=== PATIENT | female | born 1960 | race Caucasian/White ===

== ENCOUNTER 2021-04-15 11:53 | Emergency (ER) | payer BC, SELFPAY ==
[2021-04-15 12:03] VITALS: BP 142/84; PULSE 70; RESP 18; TEMP 36.5; O2SAT 100
--- NOTE | 2021-04-15 12:07 | ED.GENADULT ---
HPI - General Adult General Stated complaint: cough/congestion Source: patient Mode of arrival: ambulatory Limitations: no limitations History of Present Illness HPI narrative: Patient is a 61-year-old female who presents to the [facility] via POV for evaluation of cold symptoms that have been present for approximately 3 weeks. Additionally, she reports mild, nonproductive wet cough, sinus pain, pressure, and frontal headaches. She states symptoms worsened over the past 2 days prompting today's visit. Mucinex provides some relief. Nothing worsens symptoms. Denies known exposure to sick contacts. Patient states she tested negative for Covid on April 04, 2021. She is a current tobacco smoker. She also states she has been vaccinated against Covid and is scheduled for her booster May 14, 2021 Related Data Home Medications Medication Instructions Recorded Confirmed levothyroxine 2 03/30/19 Allergies Allergy/AdvReac Type Severity Reaction Status Date / Time varenicline Allergy Unknown Unknown Verified 04/15/21 12:12 Review of Systems Review of Systems: Pertinent negatives: fever, sweats, chills, change in appetite, fatigue, skin color changes, severe persistent headaches, nasal congestion/discharge, dizziness, lymphadenopathy, ear pain/drainage, chest pain, heart murmurs, heart palpitations, shortness of breath, wheezing, cyanosis, hemoptysis, hoarseness, orthopnea, pleuritic pain, nausea, vomiting, diarrhea, and myalgias. PMFSH Past Medical History Medical History (Updated 04/15/21 @ 12:13 by RADHA Landry, ) Hypothyroidism Family History Family History Father Family history of coronary artery disease Social History Social History Alcohol intake: current Comments I have reviewed and agree with the patient's past medical, surgical, social, and family hx as documented by the RN. There is no relevant family history pertinent to the presenting complaint. Exam Narrative: GENERAL: Well-appearing, well-nourished, and in no acute distress. HEAD: Normocephalic, atraumatic. No facial swelling appreciated. Moderate frontal and maxillary sinus tenderness appreciated upon palpation. EYES: PERRLA and EOMI. No evidence of erythema, swelling, or drainage. ENT: Bilateral external ears and ear canals normal. Bilateral TMs are normal.No TM perforation. Nares clear, no epistaxis. Minor amount of clear nasal drainage noted to bilateral naris. Bilateral turbinates are moderately edematous otherwise normal. Mucous membranes moist and pink. Uvula is midline without erythema and swelling. No evidence of petechial rash, cobblestoning, lesions, ulcers, erythema, swelling, exudates, peritonsillar abscess, tenting, or drooling. Breath odor and voice normal. NECK: Supple. No Lymphadenopathy or nuchal rigidity appreciated. CHEST: Bilateral lung manzo are clear to auscultation. No respiratory distress. No evidence of cough or pleuritic cp upon examination. HEART: Regular rate and rhythm. No murmur, gallop, or rub heard. EXTREMITIES: Normal range of motion. No edema. SKIN: Warm, dry, no rash. NEURO: No focal deficits. Alert and oriented x3. Course Vital Signs Vital signs: Vital Signs Temperature 97.7 F 04/15/21 12:03 Pulse Rate 70 04/15/21 12:03 Respiratory Rate 18 04/15/21 12:03 Blood Pressure 142/84 H 04/15/21 12:03 Pulse Oximetry 100 04/15/21 12:03 Temperature 97.7 F 04/15/21 12:03 Pulse Rate 70 04/15/21 12:03 Respiratory Rate 18 04/15/21 12:03 Blood Pressure 142/84 H 04/15/21 12:03 Pulse Oximetry 100 04/15/21 12:03 Medical Decision Making Differential Diagnosis Differential Diagnosis: Allergic rhinitis, ABRS, acute viral sinusitis, strep pharyngitis, nasopharyngitis, bronchitis, pneumonia, AOM, otitis externa, viral URI, influenza, covid
== END 2021-04-15 12:20 | disposition home or self-care (01) ==
PROVIDERS: Emergency Provider Nurse Practitioner Family; PCP Family Medicine
DX: J01.90 Acute sinusitis, unspecified (principal); E03.9 Hypothyroidism, unspecified
CPT/HCPCS: 99213; G0463

== ENCOUNTER 2023-04-29 08:04 | Emergency (ER) | payer BC, SELFPAY ==
--- NOTE | 2023-04-29 08:14 | ED.URI ---
HPI - URI/Sore Throat General Chief Complaint: Upper Respiratory Infection Stated Complaint: sore throat,sinus drainage,right ear pain Time Seen by Provider: 04/29/23 08:18 History of Present Illness HPI Narrative: 63-year-old female presented for complaint of right-sided sore throat pain, onset yesterday. Reports painful swallow and change in voice. Pain radiates from right side of throat to right ear, and feels a sharp pain in ear at times. She has been able to tolerate foods and liquids. She also reports mild cough, runny nose, and chills. She is not taking anything for symptoms. She smokes half pack per day. Endorses sick contacts with [employer]. Related Data Home Medications Medication Instructions Recorded Confirmed levothyroxine 175 mcg tablet 175 mcg PO DAILY 04/29/23 04/29/23 Allergies Allergy/AdvReac Type Severity Reaction Status Date / Time varenicline Allergy Unknown Unknown Verified 04/29/23 08:11 Review of Systems Review of Systems: CONSTITUTIONAL: Reports chills. EYES: Denies visual changes, redness, or discharge. ENT: reports rhinorrhea, congestion, sore throat, otalgia. CARDIOVASCULAR: Denies chest pain, palpitations, or edema. RESPIRATORY: Denies dyspnea. GASTROINTESTINAL: Denies abdominal pain, nausea, vomiting, or diarrhea. SKIN: Denies rash, itching, or wounds. MUSCULOSKELETAL: Denies back pain, joint pain, or myalgia. NEUROLOGIC: Denies headache [facility] Past Medical History Medical History Hypothyroidism Family History Family History Father Family history of coronary artery disease Social History Social History (Updated 04/29/23 @ 08:28 by Celeste Morrison APRN) Smoking packs per day: 0.5 Smoking cigarettes per day: 10.0 Smoking status: Current every day smoker Alcohol intake: current Exam Narrative: GENERAL: mildly ill-appearing, no acute distress. EYES: conjunctivae clear ENT: Mucous membranes moist. TMs pearly gresham with normal light reflex bilaterally; no tragal tenderness. Oropharynx erythematous Tonsils enlarged Right 3+ with soft palate erythema and swelling, left 2+ with exudate. Hoarse voice with slight muffling/guarding. No drooling, no trismus, uvula midline. No tripod positioning. NECK: Supple. No lymphadenopathy CHEST: Clear to auscultation, breath sounds equal. No respiratory distress, speaks in full sentences. HEART: Regular rate and rhythm. No murmur heard. SKIN: Warm, dry, no rash. NEURO: Alert and oriented x3. Course Course Emergency Course: Patient is aware of diagnosis, understands and agrees to treatment plan. Anticipatory guidance given. Patient agrees to follow-up as directed and is aware of reasons to seek care at the emergency department. Portions of this record may have been created with voice recognition software Level of Care: Express Care Visit Vital Signs Vital signs: Vital Signs Temperature 97.3 F L 04/29/23 08:16 Pulse Rate 76 04/29/23 08:16 Respiratory Rate 16 04/29/23 08:16 Blood Pressure 148/91 H 04/29/23 08:16 Pulse Oximetry 95 04/29/23 08:16 Oxygen Delivery Room Air 04/29/23 08:16 Temperature 97.3 F L 04/29/23 08:16 Pulse Rate 76 04/29/23 08:16 Respiratory Rate 16 04/29/23 08:16 Blood Pressure 148/91 H 04/29/23 08:16 Pulse Oximetry 95 04/29/23 08:16 Oxygen Delivery Room Air 04/29/23 08:16 MDM - URI/Sore Throat MDM Narrative Medical decision making narrative: Negative flu covid and strep result reviewed with pt. Discussed concern for peritonsillar abscess. Advised ER transfer, and discussed possible etiologies and complications at length. Pt declines ER at this time. She is aware of the risks of airway blockage, worsening of infection, and . Will give IM rocephin 1g and IM decadron 10mg prior to dc. Rx clinda and medrol pack. She is aware to go to th
[2023-04-29 08:16] VITALS: BP 148/91; PULSE 76; RESP 16; TEMP 36.3; O2SAT 95
[2023-04-29] MEDS: cefTRIAXone 1 GM, LIDOCAINE HCL 1% LOCAL INJ 2.1 ML IM (09:24)
== END 2023-04-29 09:43 | disposition left against medical advice (07) ==
PROVIDERS: Emergency Provider Nurse Practitioner Family; PCP Family Medicine
DX: J35.1 Hypertrophy of tonsils (principal); F17.210 Nicotine dependence, cigarettes, uncomplicated; E03.9 Hypothyroidism, unspecified
CPT/HCPCS: 87081; 87426; 87804; 87880; 96372; 99214; C9803; G0463; J1100

== ENCOUNTER 2024-10-05 14:09 | Emergency (ER) | payer OTHER, SELFPAY ==
[2024-10-05 14:14] VITALS: BP 134/95; PULSE 105; RESP 20; TEMP 36.6; O2SAT 98
--- NOTE | 2024-10-05 14:18 | ED_ITS ---
HPI - Neck Pain/Injury General Chief Complaint: Dental/Oral Stated Complaint: went to poss tonsil abs Time Seen by Provider: 10/05/24 14:10 History of Present Illness HPI Narrative: 64-year-old female presenting to the emergency department for evaluation of right-sided sore throat. She states she went to urgent care earlier today and was told that she might have a tonsillitis or an abscess and was referred to the emergency department for evaluation. She had a strep swab and viral panel swab done over there that was negative according to her. She endorses symptoms started this morning with subjective fever and sore throat. Denies any difficulty swallowing, no phonation changes, no intolerance to oral secretions or food/water. No coughing, sneezing, runny nose or difficulty breathing. Had something similar happen on the right side tonsillar about 1 year prior and was treated with antibiotics and did not require any kind of drainage, surgical interventions or ENT referral. Patient has never had her tonsils or adenoids removed. Remote history of thyroidectomy but nothing recent. Related Data Home Medications ?Medication ?Instructions ?Recorded ?Confirmed ?Last Taken ?Type levothyroxine 175 mcg tablet 175 mcg PO DAILY 04/29/23 04/29/23 Unknown History Allergies Allergy/AdvReac Type Severity Reaction Status Date / Time varenicline Allergy Unknown Unknown Verified 04/29/23 08:11 Review of Systems 2 Review of Systems: As reviewed above in HPI [facility] Past Medical History Medical History Hypothyroidism Family History Family History Father Family history of coronary artery disease Social History Social History Smoking packs per day: 0.5 Smoking cigarettes per day: 10.0 Smoking status: Current every day smoker Alcohol intake: current Exam 2 Narrative: GENERAL: [Well-appearing, well-nourished, and in no acute distress.] HEAD: [Normocephalic, atraumatic.] EYES: [PERRLA and EOMI.] ENT: Posterior oropharynx with some mild erythema over the right tonsillar pillar but no purulent drainage, tonsillar stones or exudates identified. No posterior pharyngeal erythema, uvula is midline, tonsillar pillars are widely space without any swelling, no appreciable abscess formation or drainable pocket of fluctuance on palpation. Mild pain but no phonation changes, no pooling of secretions, no lymphadenopathy in the head or neck. Moist mucous membranes. NECK: Supple. CHEST: [Clear to auscultation. No respiratory distress.] HEART: [Regular rate and rhythm]. No murmur heard. [Normal peripheral pulses.] ABDOMEN: [Soft, nondistended], [nontender], [No rigidity or guarding] EXTREMITIES: Normal range of motion. [No edema.] SKIN: Warm, dry, no rash. NEURO: [No focal deficits]. Alert and oriented [x3.] PSYCH: [Normal mood and affect.] Course Vital Signs Vital signs: Vital Signs Temperature 36.6 C 10/05/24 14:14 Pulse Rate 105 H 10/05/24 14:14 Respiratory Rate 20 10/05/24 14:14 Blood Pressure 134/95 H 10/05/24 14:14 Pulse Oximetry 98 10/05/24 14:14 Oxygen Delivery Room Air 10/05/24 14:14 Temperature 36.6 C 10/05/24 14:14 Pulse Rate 74 10/05/24 15:35 Respiratory Rate 20 10/05/24 15:35 Blood Pressure 155/90 H 10/05/24 15:35 Pulse Oximetry 96 10/05/24 15:35 Oxygen Delivery Room Air 10/05/24 14:14 MDM - Neck Pain/Injury MDM Narrative Medical decision making narrative: 64-year-old female presenting with right-sided sore throat symptoms with concern for potential tonsillitis versus tonsillar abscess. Patient has had remote history of tonsillitis requiring antibiotics and steroids without any surgical interventions or ENT follow-up. She is otherwise well-appearing and has subjective fever but otherwise afebrile here with reassuring vital signs with any significant tachycardia, tachypnea, hypoxia blood pressure concerns. Her examination reveals a posterior oropharynx with some mild erythema over the right tonsillar pillar but no purulent drainage, tonsillar stones or exudates identified. No posterior pharyngeal erythema, uvula is midline, tonsillar pillars are widely space without any swelling, no appreciable abscess formation or drainable pocket of fluctuance on palpation. Mild pain but no phonation changes, no pooling of secretions, no lymphadenopathy in the head or neck. Moist mucous membranes. Differential diagnosis includes pharyngitis, strep throat, tonsillitis, tonsillar stone, peritonsillar abscess, low suspicion for actual abscess formation or retropharyngeal abscess based on examination findings. Will treat her with a dose of Decadron Unasyn and laboratory studies were obtained. No present indications for advanced imaging at this time given clinical findings and overall well appearance. Patient will be able to be discharged home on oral antibiotics with ENT follow-up instructions and return precautions which she verbalized understanding. Patient's laboratory studies show slight leukocytosis of 12 but also component of hemoconcentration given her hemoglobin is elevated 15.1. Normal platelet count. Electrolytes are unremarkable. Normal creatinine, glucose mildly elevated. Patient is safe for discharge home with oral Augmentin and ENT follow-up as well as return precautions for tonsillitis. Patient comfortable with the plan and safe for discharge. Medical Records Attestation: I reviewed the patient's medical records. Lab Data Attestation: I reviewed the patient's lab results. 10/05/24 14:28 10/05/24 14:28 Labs: Lab Results 10/05/24 Range/Units 14:28 WBC 12.0 H (4.5-10.0) K/mm3 RBC 4.95 (4.2-5.4) M/mm3 Hgb 15.1 H (12.0-15.0) g/dL Hct 46.0 (37.0-47.0) % MCV 92.9 (80-100) fl MCH 30.5 (26-34) pg MCHC 32.8 (32-36) g/dl RDW 14.1 (11.5-14.5) % Plt Count 263 (150-375) k/mm3 MPV 11.4 H (7.4-10.4) fl Immature Gran % (Auto) 0.3 (0-0.5) % Neut % (Auto) 63.2 (45.5-73.1) % Lymph % (Auto) 26.3 (18.3-44.2) % Day % (Auto) 7.3 (2.6-8.5) % Eos % (Auto) 2.2 (0-4.4) % Baso % (Auto) 0.7 (0.2-1.2) % Lymph # (Auto) 3.16 (0.9-3.2) K/mm3 Day # (Auto) 0.9 H (0.1-0.6) K/mm3 Eos # (Auto) 0.3 (0-0.3) K/mm3 Baso # (Auto) 0.1 (0.0-0.1) K/mm3 Abs Immat Gran (auto) 0.04 H (0.00-0.031) K/mm3 Absolute Neuts (auto) 7.6 H (1.3-6.7) K/mm3 Absolute Nucleated RBC 0.000 (0.0-0.012) K/mm3 Nucleated RBC % 0.0 (0.0-0.2) % Sodium 137 (137-145) mmol/L Potassium 3.7 (3.4-5.0) mmol/L Chloride 99 (98-107) mmol/L Carbon Dioxide 28 (22-30) mmol/L Anion Gap 10 (4-12) mmol/L BUN 9 (7-17) mg/dL Creatinine 0.69 L (0.7-1.0) mg/dL Estim Creat Clear Calc 79 ml/min Estimated GFR > 60 (59 - ) Glucose 159 H (65-110) mg/dL Calcium 9.1 (8.4-10.2) mg/dL Discharge Plan Discharge Clinical Impression: Acute tonsillitis Patient Disposition: Home Condition: Stable Instructions: Antibiotic Form, Tonsillitis (ED) Additional Instructions: You have very mild inflammation in the right-sided tonsillar pillar, no signs of abscess, nothing drainable at this time. We will send you home with 10 days of Augmentin and he received a high dose steroid here which will help with the pain and swelling. Follow-up with an earth science faculty member, return with any worsening, new or persisting concerns. Patient Language: Setswana Prescriptions: New amoxicillin-pot clavulanate 875-125 mg tablet 1 tablet PO Q12H 10 Days Qty: 20 0RF No Action levothyroxine 175 mcg tablet 175 mcg PO DAILY clindamycin HCl [Cleocin HCl] 300 mg capsule 300 mg PO Q6H 10 Days Qty: 40 0RF methylprednisolone [Medrol (Jose Miguel)] 4 mg tablets,dose pack See Rx Instructions .ROUTE .COMPLEX Qty: 21 0RF Rx Instructions: orally per package directions Follow-up/Referrals: Abla Watters MD [Physician] - 1 Week (Tonsillitis, recurrent) Tian Linares MD [Primary Care Provider] - Lucas Green MD [Physician] - 1 Week (Tonsillitis recurrent) Stand Alone Forms: Work/School Release IP Time of Disposition: 15:23
[2024-10-05 14:35] LABS: Basophils Absolute Auto 0.1 K/mm3 (0.0-0.1); Basophils Percent Auto 0.7 % (0.2-1.2); Eosinophils Absolute Auto 0.3 K/mm3 (0-0.3); Eosinophils Percent Auto 2.2 % (0-4.4); Hemoglobin 15.1 g/dL (12.0-15.0); Immature Granulocyte Absolute 0.04 K/mm3 (0.00-0.031); Immature Granulocyte Percent A 0.3 % (0-0.5); Lymphocytes Absolute Auto 3.16 K/mm3 (0.9-3.2); Lymphocytes Percent Auto 26.3 % (18.3-44.2); Mean Corpuscular HGB Conc 32.8 g/dl (32-36); Mean Corpuscular Hemoglobin 30.5 pg (26-34); Mean Corpuscular Volume 92.9 fl (80-100); Mean Platelet Volume 11.4 fl (7.4-10.4); Monocytes Absolute Auto 0.9 K/mm3 (0.1-0.6); Monocytes Percent Auto 7.3 % (2.6-8.5); Neutrophils Absolute Auto 7.6 K/mm3 (1.3-6.7); Neutrophils Percent Auto 63.2 % (45.5-73.1); Platelet Count Result 263 k/mm3 (150-375); Red Blood Count 4.95 M/mm3 (4.2-5.4); Red Cell Distribution Width 14.1 % (11.5-14.5)
[2024-10-05] MEDS: dexAMETHasone SOD PHOS INJ 10 MG/ML 1 ML VIAL IV PUSH (14:35)
[2024-10-05] MEDS: AMPICILLIN SULB 3 GM/NS 100 ML 3 GM/100 ML VIAL IVPB (14:36)
[2024-10-05 14:44] LABS: Anion Gap 10 mmol/L (4-12); Blood Urea Nitrogen 9 mg/dL (7-17); Calcium 9.1 mg/dL (8.4-10.2); Carbon Dioxide 28 mmol/L (22-30); Chloride 99 mmol/L (98-107); Estimated CRCL calculation 79 ml/min; Estimated Glomerular Filt Rate > 60; Glucose 159 mg/dL (65-110); Potassium 3.7 mmol/L (3.4-5.0); Sodium 137 mmol/L (137-145)
--- OUTSIDE RECORDS SUMMARY | 2024-10-05 14:44 | XMS_ITS | Encounter Summary ---
Author Organization [facility] Address [address] [place] [address] Care Team Providers Care Delivery Sales Worker Name Role Phone Tian Linares MD Primary Care Provider [phone] Encounter Details Date Type Department Care Team (Late st Contact Info) Description 10/19/2012 Chart Note [facility] [address] [address] [place] [address] Cassidy Green Social History Tobacco Use Types Packs/Day Years Used Date Smoking Tobacco: Every Day Cigarettes Alcohol Use Standard Drinks/Week Comments Yes 0 (1 standard drink = 0.6 oz pur e alcohol) Comments No Sex and Gender Information Value Date Recorded Sex Assigned at Not on file 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 Physical Therapy Daily Documentation Patient: Mariana Elena Date: 10/19/2012 Date of : 1960 Physician: No ref. provider found Diagnosis: cervcialgia Pt seen for her PT eval on 08/01/12 and last treatment was 08/12/12. Pt was seen for a total of 4 sessions. No further orders recieved or appointments made as of this date so pt to be D/C'd from Skilled[facility] services as of this date. ANAHY Osman/L [facility] [address] [place] [address] [phone] (fax) documented in this encounter Plan of Treatment Upcoming Encounters Date Type Department Care Team (Late st Contact Info) Description 12/14/2024 11:30 AM CDT Office Visit [facility] [address] [place] [address] Anne Harvey MD [address] [place] [address] documented as of this encounter Visit Diagnoses Not on filedocumented in this encounter Additional Health Concerns Infection Onset Date Last Indicated Resolved Time R/O COVID-19 11/13/2021 11/13/2021 11/20/2021 1:16 AM CDT documented as of this encounter Care Teams Delivery Sales Worker Relationship Specialty Start Date End Date Tian Linares MD [address] [facility] [address] [place] [address] PCP - General Family Practice 06/23/12 documented as of this encounter
--- OUTSIDE RECORDS SUMMARY | 2024-10-05 14:44 | XMS_ITS | Clinical Summary ---
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 Gender Identity Not on file Sexual Orientation Not on file Plan of Treatment Health Maintenance Due Date Last Done Comments Hepatitis C Virus (HCV) Screening 1960 TdaP Immunization 1960 Pap Smear 1981 Cervical Cancer Screening (CCS) 1990 HPV/Cotest 1990 Colonoscopy 2005 Colorectal Cancer Screening 2005 Cologuard 2010 Immunochemical Fecal Occult Blood 2010 Mammogram 2010 Pneumococcal Immunization (5 0+ years) (1 of 1 - PCV) 2010 Zoster Immunization (1 of 2) 2010 Influenza Immunization (#1) 2023 SARS-COV-2 Immunization (2023- season) 2023 Respiratory Syncytial Virus (RSV) Immunization (Adult) (1 - 1-dose 75+ series) 2035 Hepatitis B Immunization Aged Out No longer eligible based on patient's age to complete this topic Meningococcal Immunization (ACWY) Aged Out No longer eligible based on patient's age to complete this topic Pneumococcal Immunization Combined Aged Out No longer eligible based on patient's age to complete this topic Rotavirus Immunization Aged Out No lo nger eligible based on patient's age to complete this topic
--- OUTSIDE RECORDS SUMMARY | 2024-10-05 14:44 | XMS_ITS | Clinical Summary ---
Author Organization [facility] [employer] Address [address] [place] [address] Care Team Providers Care Loop Cutter Name Role Phone Tian Linares MD Primary Care Provider [phone] Source Comments [facility] [employer],non-owned Affiliates and Associated Physician Practices is amultiple site organization consisting of ambulatory clinics and hospital sitesin [place], [place], [place] and [place]. This disclosure is being madepursuant to the Care Everywhere program and may not contain all information available regarding this patient. Last updated 18.[employer] Allergies No known active allergies Medications * Be aware that medications may not be up to date on this document. Alwaysverify current medications with the patient. Levothyroxine Sodium (SYNTHROID PO) Activ e fluticasone propionate (FLONASE) 50 MCG/ACT nasal spray [place] 2 sprays into each nostril once daily 1 bottles 05/03/2017 Active Family History Medical History Relation Name Comments MT Father Heart Disease Mother Relation Name Status Comments Father Mother Alive Social History Tobacco Use Types Packs/Day Years Used Date Smoking Tobacco: Every Day Cigarettes 0.5 25 Smokeless Tobacco: Never Tobacco Cessation:Ready to Q uit: No; Counseling Given: No Alcohol Use Standard Drinks/Week Comments No 0 (1 standard drink = 0.6 oz pur e alcohol) Comments No Sex and Gender Information Value Date Recorded Sex Assigned at Not on file 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 Gender Identity Not on file Sexual Orientation Not on file Last Filed Vital Signs Vital Sign Reading Time Taken Comments Blood Pressure 138/88 05/03/2017 10:51 AM COLLECTOR OF INTERNAL REVENUE Pulse 71 05/03/2017 10:51 AM COLLECTOR OF INTERNAL REVENUE Temperature 36.8 C (98.2 F) 05/03/2017 10:51 AM COLLECTOR OF INTERNAL REVENUE Respiratory Rate 16 05/03/2017 10:51 AM COLLECTOR OF INTERNAL REVENUE Oxygen Saturation 98% 05/03/2017 10:51 AM COLLECTOR OF INTERNAL REVENUE Inhaled Oxygen Concentration - - Weight 77.1 kg (170 lb) 05/03/2017 10:51 AM COLLECTOR OF INTERNAL REVENUE Height 157.5 cm (5' 2) 05/03/2017 10:51 AM COLLECTOR OF INTERNAL REVENUE Body Mass Index 31.09 05/03/2017 10:51 AM COLLECTOR OF INTERNAL REVENUE Plan of Treatment Health Maintenance Due Date Last Done Comments COLOGUARD (AGES 45-75) - COL ON CA SCREENING 1960 COLON MONITORING 1960 COLONOSCOPY - COLON CA SCREENING [address] CT COLONOGRAPHY - COLON CA SCREENING 1960 Colorectal Cancer Screening 1960 FIT - COLON CA SCREENING 1960 FLEX SIG - COLON CA SCREENING 1960 LIPID TESTING 1960 MAMMOGRAM 1960 HIV SCREENING 1975 HEPATITIS C SCREENING 03/11/1978 DTAP/TDAP/TD VACCINES (1 - Tdap) 1979 PNEUMOCOCCAL VACCINE 50+ (1 of 1 - PCV) 2010 ZOSTER VACCINE (1 of 2) 2010 SCREENING FOR DIABETES 05/03/2017 COVID-19 VACCINE ( - 2023-2 5 season) 2023 DEPRESSION SCREENING 04/26/2024 INFLUENZA VACCINE (Season Ended) 2024 Respiratory Syncytial Virus (RSV) Vaccine Pt: or over 60 yrs (1 - 1-dose 75+ series) 2035 HEPATITIS B VACCINE Aged Out No longe r eligible based on patient's age to complete this topic HIB VACCINE Aged Out No longer eligi ble based on patient's age to complete this topic HPV VACCINE Aged Out No longer eligi ble based on patient's age to complete this topic MENINGOCOCCAL (Group B) VACC INE SHARED DECISION-MAKING Aged Out No longer eligibl e based on patient's age to complete this topic MENINGOCOCCAL GROUPS A/C/Y/W VACCINE Aged Out No longer eligible b ased on patient's age to complete this topic Insurance [employer] Care Teams Loop Cutter Relationship Specialty Start Date End Date Tian Linares MD [address] [place] [address] PCP - General Family Medicine 04/13/16
--- OUTSIDE RECORDS SUMMARY | 2024-10-05 14:44 | XMS_ITS | Encounter Summary ---
Author Organization [facility] Address [address] [place] [address] Care Team Providers Care Chemistry Professor Name Role Phone Tian Linares MD Primary Care Provider [phone] Encounter Details Date Type Department Care Team (Late st Contact Info) Description 08/28/2024 Results Follow-Up [facility] Endocrinology [address] [place] [address] Anne Harvey MD [address] [place] [address] US HEAD NECK TISSUES Social History Tobacco Use Types Packs/Day Years Used Date Smoking Tobacco: Former Cigarettes 0.5 35 1 06/18/1978 - 04/17/2014 Alcohol Use Standard Drinks/Week Comments Yes 0 (1 standard drink = 0.6 oz pur e alcohol) Comments No Sex and Gender Information Value Date Recorded Sex Assigned at Not on file Legal Sex Female 9:56 AM INSTRUCTIONAL TECHNOLOGIST Gender Identity Not on file Sexual Orientation Not on file Occupation Industry Job Start Date Job End Date Not on file Not on file Not on file Not on file documented as of this encounter Plan of Treatment Upcoming Encounters Date Type Department Care Team (Late st Contact Info) Description 12/14/2024 11:30 AM CDT Office Visit [facility] Endocrinology [address] [place] [address] Anne Harvey MD [address] [place] [address] documented as of this encounter Visit Diagnoses Not on filedocumented in this encounter Care Teams Chemistry Professor Relationship Specialty Start Date End Date Tian Linares MD [address] [facility] [address] [facility] [address] [place] [address] PCP - General Family Practice 06/23/12 documented as of this encounter
--- OUTSIDE RECORDS SUMMARY | 2024-10-05 14:44 | XMS_ITS | Encounter Summary ---
Author Organization [facility] Address [address] [place] [address] Care Team Providers Care Veneer Layer Name Role Phone Tian Linares MD Primary Care Provider [phone] Reason for Visit * Reason Comments Sore Throat X 1 day Ear Pain Encounter Details Date Type Department Care Team (Late st Contact Info) Description 10/05/2024 12:30 PM CDT Office Visit [facility] Urgent [address] [address] Maycol Ford PA-C [address] [place] [address] Sore throat (Primary Dx) Social History Tobacco Use Types Packs/Day Years Used Date Smoking Tobacco: Former Cigarettes 0.5 35 1 06/18/1978 - 04/17/2014 Alcohol Use Standard Drinks/Week Comments Yes 0 (1 standard drink = 0.6 oz pur e alcohol) Comments No Sex and Gender Information Value Date Recorded Sex Assigned at Not on file Legal Sex Female 9:56 AM MARKETING PROPOSAL SPECIALIST Gender Identity Not on file Sexual Orientation Not on file Occupation Industry Job Start Date Job End Date Not on file Not on file Not on file Not on file documented as of this encounter Last Filed Vital Signs Vital Sign Reading Time Taken Comments Blood Pressure 134/89 10/05/2024 12:19 PM CDT Pulse 88 10/05/2024 12:19 PM CDT Temperature 36.7 C (98 F) 10/05/2024 12:19 PM CDT Respiratory Rate 24 10/05/2024 12:19 PM CDT Oxygen Saturation 96% 10/05/2024 12:19 PM CDT Inhaled Oxygen Concentration - - Weight 95.3 kg (210 lb) 10/05/2024 12:19 PM CDT Height 157.5 cm (5' 2) 10/05/2024 12:19 PM CDT Body Mass Index 38.41 10/05/2024 12:19 PM CDT documented in this encounter Progress Notes * Maycol Ford PA-C - 10/05/2024 12:30 PM CDT Assessment and Plan Encounter Diagnosis Name Primary? Sore throat Yes Maik was seen today for sore throat and ear pain. Diagnoses and all orders for this visit: Sore throat - POC RAPID STREP A ANTIGEN RST: negative Results for orders placed or performed in visit on 10/05/24 POC RAPID STREP A ANTIGEN Result Value Ref Range RAPID STREP POC Negative Negative, Indeterminate INTERNAL KIT QC POC Pass Pass KIT LOT NUMBER POC [id number] KIT EXP DATE POC 09/25/25 READ METHOD POC Visual Comment: Advised pt to proceed to ER immediately secondary to unilateral throat pain with history of peritonsillar abscess. Discussed risks of no ER f/u including sepsis, airway blockage, and . Discussedlimitations of urgent care including no access to advanced imaging. Pt verbalizes understanding andagrees to proceed immediately to ER via personal vehicle. Pt alert, ambulatory, and in no acute distress at time of ER transfer. Data Unavailable Clinical Tools Modified Centor Score Subjective History of present illness Mariana Elena is a 64 y.o. female who presents with right-sided sore throat x 1 day, worse this AM. Pt notes subjective fever (chills and myalgias). Pt notes associated sinus congestion and post-nasal drainage. Pt notes history of similar sxs secondary to infected tonsil, notes it was on right side at time of prior episode. Pt notes pain seems to radiate into right ear. Denies dysphonia. Location: right Duration: yesterday Progression: unchanged Severity: moderate Pt notes history of similar sxs, previously diagnosed as peritonsillar abscess. Fever: No Drooling: No Review of Systems Const: see HPI Neck: no neck pain CV: no chest pain Resp: no shortness of breath No outpatient medications have been marked as taking for the 10/05/24 encounter (Office Visit) with Maycol Ford PA-C. Patient Active Problem List Diagnosis Date Noted Personal history of malignant neoplasm of thyroid 03/24/2023 Tobacco use disorder 04/05/2014 Postsurgical hypothyroidism 09/16/2012 Social History Tobacco Use Smoking status: Former Current packs/day: 0.00 Average packs/day: 0.5 packs/day for 35.0 years (17.5 ttl pk-yrs) Types: Cigarettes Start date: 04/17/1979 Quit date: 04/17/2014 Years since quittin.4 Substance Use Topics Alcohol use: Yes Drug use: No Objective Vitals: 10/05/24 1219 BP: 134/89 Pulse: 88 Resp: 24 Temp: 98 ??F (36.7 ??C) SpO2: 96% General:?well developed, well nourished, no acute distress. Eyes: No conjunctival injection or discharge. Ear: normal TM without erythema, bulging, effusion Nose/sinus: no congestion or sinus tenderness Throat: moderate pharyngeal erythema. 2+ right Tonsillar hypertrophy, 1+ left tonsillar hypertrophy. Overlying exudate. Uvula midline. Oropharyngeal area patent. No drooling. Lung: clear, normal work or breathing Neck: No stridor. Normal ROM. Heart: Regular rhythm, no murmurs Psychiatric: Affect and mood normal. Interactive and conversant. Alert and oriented. Skin: Warm and dry without visible rash. Lymphatic: No palpable lymphadenopathy. Non tender nodes. documented in this encounter Plan of Treatment Upcoming Encounters Date Type Department Care Team (Late st Contact Info) Description 12/14/2024 11:30 AM CDT Office Visit [facility] Endocrinology [address] [place] [address] Anne Harvey MD [address] [place] [address] documented as of this encounter Procedures Procedure Name Priority Date/Time Associated Diagnosis Comments POC RAPID STREP A ANTIGEN Routine 10/05/2024 12:34 PM CDT Sore throat documented in this encounter Results * POC RAPID STREP A ANTIGEN (10/05/2024 12:34 PM CDT) RAPID STREP POC Negative Negative, Indeterminate [facility] INTERNAL KIT QC POC Pass Pass [facility] KIT LOT NUMBER POC [id number] [facility] KIT EXP DATE POC 09/25/25 [facility] READ METHOD POC Visual [facility] Upper Respiratory SPECIMEN FROM THROAT / Unknown 10/05/2024 12:34 PM CDT Maycol Ford PA-C POINT OF CARE TESTING Final Re sult [facility] CLIA# [id number] [place] [address] documented in this encounter Visit Diagnoses Diagnosis Sore throat- Primary Acute pharyngitis documented in this encounter Care Teams Veneer Layer Relationship Specialty Start Date End Date Tian Linares MD [address] [facility] 120 [place] [address] PCP - General Family Practice 06/23/12 documented as of this encounter
--- OUTSIDE RECORDS SUMMARY | 2024-10-05 14:44 | XMS_ITS | Clinical Summary ---
Author Organization [facility] Juancatherine nickolas Taylor Address [address] [address] Care Team Providers Care Production Supervisor Off Shift Name Role Phone Tian Linares MD Primary Care Provider [phone] Allergies No known active allergies Medications cyanocobalamin (B-12 DOTS) 500 mcg Oral tablet Acti ve Cholecalciferol , Vitamin D3, 50 mcg (2,000 unit) Capsule Take 5,000 Units by mouth daily. OTC Active ergocalciferol (VITAMIN D2) 50,000 unit capsule Take one tablet every 7 days for 12 weeks. 12 Capsule 2 Active levothyroxine 175 mcg tablet Take 1 Tablet (175 mcg) by mouth daily. 90 Tablet 1 09/13/2024 2:02 PM CDT 5 Active epinastine (ELESTAT) 0.05 % solution Administer 1 Drop into both eyes 2 times daily. 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 Encounters Date Type Department Care Team Description 10/05/2024 12:30 PM CDT Office Visit [facility] Urgent [address] [phone] Maycol Ford PA-C Sore throat (Primary Dx) 09/28/2024 11:40 AM CDT Office Visit [facility] Urgent Care [facility] [address] [place] [phone] [facility] Juliet Gallegos FNP Irritation of both eyes (Primary Dx) 09/14/2024 External Device Data STL ABSTRACTION Provider, Abstract 09/13/2024 External Device Data STL ABSTRACTION Provider, Abstract 09/12/2024 External Device Data STL ABSTRACTION Provider, Abstract 08/28/2024 10:44 AM CDT - 08/28/2024 11:59 PM CDT Hospital Encounter [facility] [address] [place] [address] Anne Harvey MD Discharge Disposition: Home or Self Care 08/28/2024 Results Follow-Up [facility] Endocrinology [address] [place] [address] Anne Harvey MD US HEAD NECK TISSUES 07/12/2024 External Device Data STL ABSTRACTION Provider, Abstract 07/05/2024 External Device Data STL ABSTRACTION Provider, Abstract from Last 3 Months Immunizations Immunization Administration Dates Next Due (PFIZER)(12 YR UP) COVID-19 VACCINE - EMERGENCY USE AUTHORIZATION, MRNA, [id number](PF) 30 MCG/0.3 ML IM SUSP 05/14/2020,04/25/2020 (SHINGRIX)(50 YRS UP) ZOSTER VACCINE RECOMBINANT, 0.5 ML, IM 03/24/2022 INFLUENZA VACCINE QUADRIVALE NT 3 YR UP PF IM 02/26/2016 INFLUENZA VACCINE QUADRIVALE NT 6 MOS UP PF IM 02/11/2023,02/13/2022 INFLUENZA VACCINE TRIVALENT SPLIT VIRUS, (6 MOS UP), 0.5ML (PF), IM 02/10/2024 Influenza Seasonal Unspecifi ed Formulation IM 02/10/2021,01/09/2020,02/10/2019,2017,03/02/2017,02/17/2013 Influenza Vaccine Split 3+ Yrs IM 02/25/2015,06/2013 Family History Medical History Relation Name Comments Heart Disease Mother Breast Cancer Neg Hx Ovarian Cancer Neg Hx Relation Name Status Comments Father Mother Alive Social History Tobacco Use Types Packs/Day Years Used Date Smoking Tobacco: Former Cigarettes 0.5 35 1 06/18/1978 - 04/17/2014 Tobacco Cessation:Counseling Given: Not Answered Alcohol Use Standard Drinks/Week Comments Yes 0 (1 standard drink = 0.6 oz pur e alcohol) Comments No Sex and Gender Information Value Date Recorded Sex Assigned at Not on file Legal Sex Female 9:56 AM HEMSTITCHER Gender Identity Not on file Sexual Orientation Not on file Occupation Industry Job Start Date Job End Date Not on file Not on file Not on file Not on file Last Filed Vital Signs [...] Mass Index 38.41 10/05/2024 12:19 PM CDT Plan of Treatment Upcoming Encounters Date Type Department Care Team (Late st Contact Info) Description 12/14/2024 11:30 AM CDT Office Visit [facility] Endocrinology [address] [place] [address] Anne Harvey MD [address] [place] [address] Health Maintenance Due Date Last Done Comments Pre-Diabetes and Diabetes Screening 1960 DTAP/TDAP/TD VACCINES (1 - Tdap) 1979 FIT-DNA Q 3 years 2005 FIT/FOBT Q 1 year 2005 Flex Sig/CT Colonography Q 5 years 2005 BREAST CANCER SCREENING 02/26/2016 02/25/2015, 05/15 COLORECTAL SCREENING 05/09/2020 05/09/2010 Colorectal Cancer Screening 05/09/2020 ZOSTER VACCINE (2 of 2) 05/19/2022 03/24/2022 COVID-19 Vaccine (3 - 2023-2 5 season) 2023 05/14/2020, 04/25/2020 RSV VACCINE (60+ or ) (1 - 1-dose 75+ series) 2035 INFLUENZA VACCINE Completed 02/10/2024, , 02/13/2022, Additional history exists Procedures Procedure Name Priority Date/Time Associated Diagnosis Comments POC RAPID STREP A ANTIGEN Routine 10/05/2024 12:34 PM CDT Sore throat US HEAD NECK TISSUES Routine 08/28/2024 11:33 AM CDT Postsurgical hypothyroidism Personal history of malignant neoplasm of thyroid MAMMO SCREEN BILAT W OR WO CAD Routine 02/25/2015 2:14 PM HEMSTITCHER Visit for screening mammogram from Last 3 Months or Most Recently Relevant to Health Maintenance Results * POC RAPID STREP A ANTIGEN (10/05/2024 12:34 PM CDT) RAPID STREP POC Negative Negative, Indeterminate [facility] INTERNAL KIT QC POC Pass Pass [facility] KIT LOT NUMBER POC [id number] [facility] KIT EXP DATE POC 09/25/25 [facility] READ METHOD POC Visual [facility] Upper Respiratory SPECIMEN FROM THROAT / Unknown 10/05/2024 12:34 PM CDT Maycol Ford PA-C POINT OF CARE TESTING Final Re sult [facility] CLIA# [id number] [place] [address] * US HEAD NECK TISSUES (08/28/2024 11:33 AM CDT) Anatomical Region Laterality Modality Head Ultrasound 08/28/2024 11:3 4 AM CDT Impressions 08/28/2024 2:19 PM CDT IMPRESSION: 1. Postoperative changes of thyroidectomy with unchanged left level 2/3 lymph node containing calcifications. ACR 2017 TI-RADS Recommendations TR5 Highly suspicious (>=7 points) (risk of malignancy > 20%) >=1 cm: FNA 0.5-0.9 cm: follow-up US every year for 5 years <0.5 cm: no further evaluation TR4 Moderately suspicious (4-6 points) (risk of malignancy 5-20%) >=1.5 cm: FNA 1-1.4 cm: follow-up US in 1, 2, 3, and 5 years <1.0 cm: no further evaluation TR3 Mildly suspicious (3 points) (risk of malignancy 2-5%) >=2.5 cm: FNA 1.5-2.4 cm: follow-up US in 1, 3, and 5 years <1.5 cm: no further evaluation TR2 Not suspicious (2 points) and TR1 Benign (0 points) (risk of malignancy < 2%) No FNA or follow-up US DICTATION LOCATION: [address] 08/28/2024 2:19 PM CDT EXAMINATION: US HEAD NECK TISSUES DATE: 08/28/2024 11:33 AM HISTORY: See Diagnosis; Postsurgical hypothyroidism; Personal history of malignant neoplasm of thyroid COMPARISON: 09/21/2023 FINDINGS: Postoperative changes of thyroidectomy. No suspicious soft tissue nodule in the operative bed. Unchanged bilateral cervical lymph nodes including a 1.7 x 0.8 x 0.9 cm left level 2/3 lymph node containing calcifications which is unchanged. Procedure Note Dmitry Grijalva MD - 08/28/2024 EXAMINATION: US HEAD NECK TISSUES DATE: 08/28/2024 11:33 AM HISTORY: See Diagnosis; Postsurgical hypothyroidism; Personal history of malignant neoplasm of thyroid COMPARISON: 09/21/2023 FINDINGS: Postoperative changes of thyroidectomy. No suspicious soft tissue nodule in the operative bed. Unchanged bilateral cervical lymph nodes including a 1.7 x 0.8 x 0.9 cm left level 2/3 lymph node containing calcifications which is unchanged. IMPRESSION: 1. Postoperative changes of thyroidectomy with unchanged left level 2/3 lymph node containing calcifications. ACR 2017 TI-RADS Recommendations TR5 Highly suspicious (>=7 points) (risk of malignancy > 20%) >=1 cm: FNA 0.5-0.9 cm: follow-up US every year for 5 years <0.5 cm: no further evaluation TR4 Moderately suspicious (4-6 points) (risk of malignancy 5-20%) >=1.5 cm: FNA 1-1.4 cm: follow-up US in 1, 2, 3, and 5 years <1.0 cm: no further evaluation TR3 Mildly suspicious (3 points) (risk of malignancy 2-5%) >=2.5 cm: FNA 1.5-2.4 cm: follow-up US in 1, 3, and 5 years <1.5 cm: no further evaluation TR2 Not suspicious (2 points) and TR1 Benign (0 points) (risk of malignancy < 2%) No FNA or follow-up US DICTATION LOCATION: [address] us Anne Harvey MD US ORDERABLES Final Result * MAMMO DIGITAL SCREEN BILAT (02/25/2015 2:14 PM HEMSTITCHER) Anatomical Region Laterality Modality Breast Bilateral Mammography Narrative 02/26/2015 10:30 AM HEMSTITCHER Bilateral digital screening mammogram with computer assisted diagnosis History: Annual screening exam. Findings: A bilateral screening mammogram was performed. Comparison is made to : 05/15/2013 There are scattered fibroglandular densities. No new masses, suspicious calcifications, or areas of asymmetry or distortion are identified. CAD was utilized. Impression: Negative screening mammogram. Recommendation: Routine annual follow-up Overall Assessment: Birads Category 1: Negative us Tian Linares MD MAMMO ORDERABLES Final Result from Last 3 Months or Most Recently Relevant to Health Maintenance Insurance RX [employer] Member Subscriber Plan / Payer (Ef fective 2024-Present) Name:Mariana Elena Relation to Subscriber:Self Name:Mariana Elena Subscriber ID:Not on file Payer ID:Not on file Type:Not on file Address: [address] [facility] [address] [employer] Advance Directives For more information, please contact: [phone] * Full Code (Latest Code Status on File) Date Activated Date Inactivated Comments 09/02/2012 5:13 PM 09/03/2012 10:49 AM * Full Code Date Activated Date Inactivated Comments 09/02/2012 12:56 PM 09/02/2012 5:13 PM * Full Code Date Activated Date Inactivated Comments 09/02/2012 12:23 PM 09/02/2012 12:56 PM Care Teams Production Supervisor Off Shift Relationship Specialty Start Date End Date Tian Linares MD [address] [facility] [address] [place] [address] PCP - General Family Practice 06/23/12
--- OUTSIDE RECORDS SUMMARY | 2024-10-05 15:27 | XMS_ITS | Encounter Summary ---
Author Organization [facility] Address [address] [place] [address] Care Team Providers Care Rand Maker Name Role Phone Tian Linares MD Primary Care Provider [phone] Encounter Details Date Type Department Care Team (Late st Contact Info) Description 08/28/2024 Results Follow-Up [facility] Endocrinology [address] [place] [address] Anne Harvey MD [address] [place] [address] US HEAD NECK TISSUES Social History Tobacco Use Types Packs/Day Years Used Date Smoking Tobacco: Former Cigarettes 0.5 35 1 06/18/1978 - 04/17/2014 Alcohol Use Standard Drinks/Week Comments Yes 0 (1 standard drink = 0.6 oz pur e alcohol) Comments No Sex and Gender Information Value Date Recorded Sex Assigned at Not on file Legal Sex Female 9:56 AM ABLE BODIED SEAMAN Gender Identity Not on file Sexual Orientation Not on file Occupation Industry Job Start Date Job End Date Not on file Not on file Not on file Not on file documented as of this encounter Plan of Treatment Upcoming Encounters Date Type Department Care Team (Late st Contact Info) Description 12/14/2024 11:30 AM CDT Office Visit [facility] Endocrinology [address] [place] [address] Anne Harvey MD [address] [place] [address] documented as of this encounter Visit Diagnoses Not on filedocumented in this encounter Care Teams Rand Maker Relationship Specialty Start Date End Date Tian Linares MD [address] [facility] [address] [facility] [address] [place] [address] PCP - General Family Practice 06/23/12 documented as of this encounter
--- OUTSIDE RECORDS SUMMARY | 2024-10-05 15:27 | XMS_ITS | Clinical Summary ---
Author Organization [facility] Care Team Providers Care Ion Implant Machine Operator Name Role Phone Unavailable Primary Care Provider Unavailabl e Social History Tobacco Use Types Packs/Day Years Used Date Smoking Tobacco: Never Assessed Comments Unknown Sex and Gender Information Value Date Recorded Sex Assigned at Not on file Legal Sex Female 11:18 AM ELECTRIC CELL TENDER Gender Identity Not on file Sexual Orientation [...]
--- OUTSIDE RECORDS SUMMARY | 2024-10-05 15:27 | XMS_ITS | Encounter Summary ---
Author Organization [facility] Address [address] [place] [address] Care Team Providers Care Vice President For Philanthropy Name Role Phone Tian Linares MD Primary Care Provider [phone] Reason for Visit * Reason Comments Sore Throat X 1 day Ear Pain Encounter Details Date Type Department Care Team (Late st Contact Info) Description 10/05/2024 12:30 PM CDT Office Visit [facility] Urgent [address] [address] Maycol Ford PA-C [address] [place] [address] Sore throat (Primary Dx) Social History Tobacco Use Types Packs/Day Years Used Date Smoking Tobacco: Former Cigarettes 0.5 35 1 06/18/1978 - 04/17/2014 Alcohol Use Standard Drinks/Week Comments Yes 0 (1 standard drink = 0.6 oz pur e alcohol) Comments No Sex and Gender Information Value Date Recorded Sex Assigned at Not on file Legal Sex Female 9:56 AM DIRECTOR OF COLLECTIONS Gender Identity Not on file Sexual Orientation [...] Description 12/14/2024 11:30 AM CDT Office Visit [facility] Endocrinology [address] [place] [address] Anne Harvey MD [address] [facility] [address] [place] [address] documented as of this encounter Procedures Procedure Name Priority Date/Time Associated Diagnosis Comments POC RAPID STREP A ANTIGEN Routine 10/05/2024 12:34 PM CDT Sore throat documented in this encounter Results * POC RAPID STREP A ANTIGEN (10/05/2024 12:34 PM CDT) RAPID STREP POC Negative Negative, Indeterminate [facility] INTERNAL KIT QC POC Pass Pass [facility] KIT LOT NUMBER POC [id number] [facility] KIT EXP DATE POC 09/25/25 [facility] READ METHOD POC Visual [facility] Upper Respiratory SPECIMEN FROM THROAT / Unknown 10/05/2024 12:34 PM CDT Maycol Ford PA-C POINT OF CARE TESTING Final Re sult [facility] CLIA# [id number] [place] [address] documented in this encounter Visit Diagnoses Diagnosis Sore throat- Primary Acute pharyngitis documented in this encounter Care Teams Vice President For Philanthropy Relationship Specialty Start Date End Date Tian Linares MD [address] [facility] [address] [place] [address] PCP - General Family Practice 06/23/12 documented as of this encounter
--- OUTSIDE RECORDS SUMMARY | 2024-10-05 15:27 | XMS_ITS | Clinical Summary ---
Author Organization [facility] Address [address] [facility] [place] [address] Care Team Providers Care Ski Molder Name Role Phone Tian Linares MD Primary Care Provider [phone] [facility],non-owned Affiliates and Associated Physician Practices is amultiple site organization consisting of ambulatory clinics and hospital sitesin [place], [place], [place] and [place]. This disclosure is being madepursuant to the Care Everywhere program and may not contain all information available regarding this patient. Last updated 18.[facility] Allergies No known active allergies Medications * Be aware that medications may not be up to date on this document. Alwaysverify current medications with the patient. Levothyroxine Sodium (SYNTHROID PO) Activ e fluticasone propionate (FLONASE) 50 MCG/ACT nasal spray [place] 2 sprays into each nostril once daily 1 bottles 05/03/2017 Active Family History Medical History Relation Name Comments [place] Father Heart Disease Mother Relation Name Status [...] on file Legal Sex Female 9:41 AM PHOSPHORUS PROCESSING SUPERVISOR Gender Identity Not on file Sexual Orientation Not on file Last Filed Vital Signs Vital Sign Reading Time Taken Comments Blood Pressure 138/88 05/03/2017 10:51 AM PHOSPHORUS PROCESSING SUPERVISOR Pulse 71 05/03/2017 10:51 AM PHOSPHORUS PROCESSING SUPERVISOR Temperature 36.8 C (98.2 F) 05/03/2017 10:51 AM PHOSPHORUS PROCESSING SUPERVISOR Respiratory Rate 16 05/03/2017 10:51 AM PHOSPHORUS PROCESSING SUPERVISOR Oxygen Saturation 98% 05/03/2017 10:51 AM PHOSPHORUS PROCESSING SUPERVISOR Inhaled Oxygen Concentration - - Weight 77.1 kg (170 lb) 05/03/2017 10:51 AM PHOSPHORUS PROCESSING SUPERVISOR Height 157.5 cm (5' 2) 05/03/2017 10:51 AM PHOSPHORUS PROCESSING SUPERVISOR Body Mass Index 31.09 05/03/2017 10:51 AM PHOSPHORUS PROCESSING SUPERVISOR Plan of Treatment Health Maintenance Due Date [...] complete this topic Insurance DEVANG Care Teams Ski Molder Relationship Specialty Start Date End Date Tian Linares MD [address] [place] [address] PCP - General Family Medicine 04/13/16
--- OUTSIDE RECORDS SUMMARY | 2024-10-05 15:27 | XMS_ITS | Encounter Summary ---
Author Organization [facility] Address [address] [place] [address] Care Team Providers Care Construction Equipment Mechanic Helper Name Role Phone Tian Linares MD Primary Care Provider [phone] Encounter Details Date Type Department Care Team (Late st Contact Info) Description 10/19/2012 Chart Note [facility] [place] [address] [place] [address] Cassidy Green Social History Tobacco Use Types Packs/Day Years Used Date Smoking Tobacco: Every Day Cigarettes Alcohol Use Standard Drinks/Week Comments Yes 0 (1 standard drink = 0.6 oz pur e alcohol) Comments No Sex and Gender Information Value Date Recorded Sex Assigned at Not on file 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 [facility] [address] [place] [address] [phone] (fax) documented in this encounter Plan of Treatment Upcoming Encounters Date Type Department Care Team (Late st Contact Info) Description 12/14/2024 11:30 AM CDT Office Visit [facility] Endocr[facility]ology [address] [place] [address] Anne Harevy MD [address] [place] [address] documented as of this encounter Visit Diagnoses Not on filedocumented in this encounter Additional Health Concerns Infection Onset Date Last Indicated Resolved Time R/O COVID-19 11/13/2021 11/13/2021 11/20/2021 1:16 AM CDT documented as of this encounter Care Teams Construction Equipment Mechanic Helper Relationship Specialty Start Date End Date Tian Linares MD [address] [facility] [address] [place] [address] PCP - General Family Practice 06/23/12 documented as of this encounter
--- OUTSIDE RECORDS SUMMARY | 2024-10-05 15:27 | XMS_ITS | Clinical Summary ---
Author Organization [facility] Juancatherine nickolas Taylor Address [address] [address] Care Team Providers Care Data Management Engineer Name Role Phone Tian Linares MD Primary Care Provider [phone] Allergies No known active allergies Medications cyanocobalamin [...] Description 10/05/2024 12:30 PM CDT Office Visit [facility] Urgent [address] [phone] Maycol Ford PA-C Sore throat (Primary Dx) 09/28/2024 11:40 AM CDT Office Visit [facility] Care [facility] [address] [place] [phone] [facility] Juliet Gallegos FNP Irritation of both eyes (Primary Dx) 09/14/2024 External Device Data [facility] ABSTRACTION Provider, Abstract 09/13/2024 External Device Data [facility] ABSTRACTION Provider, Abstract 09/12/2024 External Device Data [facility] ABSTRACTION Provider, Abstract 08/28/2024 10:44 AM CDT - 08/28/2024 11:59 PM CDT Hospital Encounter [facility] Imaging Services [facility] [address] [place] [address] Anne Harvey MD Discharge Disposition: Home or Self Care 08/28/2024 Results Follow-Up [facility] Endocrinology [address] [place] [id number] Anne Harvey MD US HEAD NECK TISSUES 07/12/2024 External Device Data [facility] ABSTRACTION Provider, Abstract 07/05/2024 External Device Data [facility] ABSTRACTION Provider, Abstract from Last 3 Months Immunizations Immunization Administration Dates Next Due (PFIZER)(12 YR UP) COVID-19 VACCINE - EMERGENCY USE AUTHORIZATION, MRNA, [id number](PF) 30 MCG/0.3 ML IM SUSP 05/14/2020,04/25/2020 (SHINGRIX)(50 [...] on file 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 Gender Identity Not on file Sexual Orientation [...] 12/14/2024 11:30 AM CDT Office Visit [facility] Endocrinology [address] [place] [address] Anne Harvey MD [address] [place] [address] Health Maintenance Due Date Last [...] OR WO CAD Routine 02/25/2015 2:14 PM AUTOMATIC LINE SET UP MECHANIC Visit for screening mammogram from Last 3 Months or Most Recently Relevant to Health Maintenance Results * POC RAPID STREP A ANTIGEN (10/05/2024 12:34 PM CDT) RAPID STREP POC Negative Negative, Indeterminate [facility] INTERNAL KIT QC POC Pass Pass [facility] KIT LOT NUMBER POC [id number] [facility] KIT EXP DATE POC 09/25/25 [facility] READ METHOD POC Visual [facility] Upper Respiratory SPECIMEN FROM THROAT / Unknown 10/05/2024 12:34 PM CDT Maycol Ford PA-C POINT OF CARE TESTING Final Re sult [facility] CLIA# [id number] [place] [address] * US HEAD NECK TISSUES (08/28/2024 11:33 [...] No FNA or follow-up US DICTATION LOCATION: [address] 08/28/2024 2:19 PM CDT EXAMINATION: US [...] No FNA or follow-up US DICTATION LOCATION: [address] us Anne Harvey MD US ORDERABLES Final Result * MAMMO DIGITAL SCREEN BILAT (02/25/2015 2:14 PM AUTOMATIC LINE SET UP MECHANIC) Anatomical Region Laterality Modality Breast Bilateral Mammography Narrative 02/26/2015 10:30 AM AUTOMATIC LINE SET UP MECHANIC Bilateral digital screening mammogram with computer assisted [...] file Type:Not on file Address: [address] [facility] Advance Directives For more information, please contact: [phone] * Full Code (Latest Code Status on File) Date Activated Date Inactivated Comments 09/02/2012 5:13 PM 09/03/2012 10:49 AM * Full Code Date Activated Date Inactivated Comments 09/02/2012 12:56 PM 09/02/2012 5:13 PM * Full Code Date Activated Date Inactivated Comments 09/02/2012 12:23 PM 09/02/2012 12:56 PM Care Teams Data Management Engineer Relationship Specialty Start Date End Date Tian Linares MD [address] [facility] [address] [place] [address] PCP - General Family Practice 06/23/12
[2024-10-05 15:35] VITALS: BP 155/90; PULSE 74; RESP 20; O2SAT 96
== END 2024-10-05 15:36 | disposition home or self-care (01) ==
PROVIDERS: Emergency Provider Student in an Organized Health Care Education/Training Program; PCP Family Medicine
DX: J03.90 Acute tonsillitis, unspecified (principal); E03.9 Hypothyroidism, unspecified; F17.210 Nicotine dependence, cigarettes, uncomplicated
CPT/HCPCS: 36415; 80048; 85025; 96365; 96375; 99284; J0295; J1100